=== PATIENT | female | born 1970 | race Caucasian/White ===

== ENCOUNTER 2022-01-21 15:06 | Outpatient (CLI) | payer BC, SELFPAY ==
--- NOTE | 2022-01-21 15:20 | CRLHL7_ITS ---
For Patients: As a result of the Century Cures Act, medical imaging exams and procedure reports are released immediately into your electronic medical record. You may view this report before your referring provider. If you have questions, please contact your health care provider. BILATERAL SCREENING MAMMOGRAM WITH COMPUTER-AIDED DETECTION AND TOMOSYNTHESIS TECHNIQUE: CC and MLO views were obtained. These mammographic images have been obtained using full-field digital technique. These mammographic images were interpreted with the benefit of computer-aided detection. Breast Tomosynthesis was used in this interpretation. COMPARISON FILM: 11/25/2020, 11/14/2020, 11/12/2019. BREAST COMPOSITION: The breasts are heterogeneously dense, which may obscure small masses FINDINGS: There is a possible 1.3 cm asymmetry LEFT lateral breast 6 cm from the nipple. Negative findings RIGHT breast. IMPRESSION: Possible LEFT breast asymmetry. ASSESSMENT: BI-RADS Category 0: Incomplete: Need Additional Imaging Evaluation and/or Prior Mammograms for Comparison RECOMMENDATION: Recommend CC spot compression view and 90-degree lateral view. Additionally, ultrasound may be needed during the diagnostic evaluation. The [facility] will contact the patient for follow-up. A lay language report of this examination will be provided to the patient. Marlyn Hart M.D. Diagnostic/Breast Radiologist [email or web address] Transcribed: 9:25 a.m. DW/Dictated by: Marlyn Hart MD @ 01/22/2022 8:43:00 AM (Electronically Signed)
== END 2022-01-21 15:07 | disposition home or self-care (01) ==
PROVIDERS: PCP Physician Assistant Medical; Visit Provider Physician Assistant Medical
DX: Z12.31 Encounter for screening mammogram for malignant neoplasm of breast (principal); R92.2 Inconclusive mammogram; N63.20 Unspecified lump in the left breast, unspecified quadrant
CPT/HCPCS: 77063; 77067

== ENCOUNTER 2022-02-01 10:01 | Outpatient (CLI) | payer BC, SELFPAY ==
--- NOTE | 2022-02-01 09:45 | CRLHL7_ITS ---
For Patients: As a result of the Cures Act, medical imaging exams and procedure reports are released immediately into your electronic medical record. You may view this report before your referring provider. If you have questions, please contact your health care provider. LEFT BREAST DIAGNOSTIC MAMMOGRAM WITH COMPUTER-AIDED DETECTION AND TOMOSYNTHESIS CLINICAL HISTORY: LEFT breast mass/asymmetry. COMPARISON: 01/21/2022. TECHNIQUE: Digital LEFT mammogram in 2 projections. Real-time ultrasound imaging of LEFT breast with imaging documentation. BREAST COMPOSITION: The breasts are heterogeneously dense, which may obscure small masses. FINDINGS: 3D spot-compression CC and 3D lateral LEFT breast mammogram submitted. Dense fibroglandular tissue is present within the LEFT breast at posterior depth 3 o`clock. An incidental cyst is present 3 o`clock 6 cm from the nipple measuring 3 x 4 x 4 millimeters. No abnormal vascularity. At 1 o`clock 3 cm from the nipple there is a circumscribed anechoic simple cyst at posterior depth measuring 2.3 x 0.7 x 1.6 cm. IMPRESSION: Dense fibroglandular tissue and benign fibrocystic changes. No evidence of malignancy. RECOMMENDATIONS: Annual BILATERAL screening mammography. BI-RADS Category 2: Benign Results and recommendations discussed with the patient. Dictated by Danilo Millard MD @ 02/01/2022 11:04:15 AM/edilia be/Dictated by: Danilo Millard MD @ 02/01/2022 11:04:00 AM (Electronically Signed)
--- NOTE | 2022-02-01 10:15 | CRLHL7_ITS ---
For Patients: As a result of the Century Cures Act, medical imaging exams and procedure reports are released immediately into your electronic medical record. You may view this report before your referring provider. If you have questions, please contact your health care provider. Please refer to mammogram report done same day for details of ultrasound. be/Dictated by: Danilo Millard MD @ 02/01/2022 11:04:00 AM (Electronically Signed)
== END 2022-02-01 10:02 | disposition home or self-care (01) ==
LOC: MAMMO 10:02
PROVIDERS: PCP Physician Assistant Medical; Visit Provider Physician Assistant Medical
DX: N63.20 Unspecified lump in the left breast, unspecified quadrant (principal); R92.8 Other abnormal and inconclusive findings on diagnostic imaging of breast
CPT/HCPCS: 76642; 77065; G0279

== ENCOUNTER 2023-01-19 08:55 | Outpatient (CLI) | payer BC, SELFPAY | END 2023-01-19 08:56 | disposition home or self-care (01) | PROVIDERS: PCP Physician Assistant Medical; Visit Provider Physician Assistant Medical | DX: Z00.00 Encounter for general adult medical examination without abnormal findings (principal); E78.5 Hyperlipidemia, unspecified; Z13.0 Encounter for screening for diseases of the blood and blood-forming organs and certain disorders involving the immune mechanism | CPT/HCPCS: 80053; 80061 ==

== ENCOUNTER 2023-03-25 14:26 | Outpatient (CLI) | payer BC, SELFPAY ==
--- NOTE | 2023-03-25 14:40 | CRLHL7_ITS ---
For Patients: As a result of the Cures Act, medical imaging exams and procedure reports are released immediately into your electronic medical record. You may view this report before your referring provider. If you have questions, please contact your health care provider. BILATERAL SCREENING MAMMOGRAM WITH COMPUTER-AIDED DETECTION AND TOMOSYNTHESIS TECHNIQUE: CC and MLO views were obtained. These mammographic images have been obtained using full-field digital technique. These mammographic images were interpreted with the benefit of computer-aided detection. Breast Tomosynthesis was used in this interpretation. COMPARISON FILM: 01/21/22, 11/14/20, 11/12/19. FINDINGS: The breasts are heterogeneously dense, which may obscure small masses . IMPRESSION: There is no radiographic evidence for malignancy. ASSESSMENT: BI-RADS Category 1: Negative RECOMMENDATION: Routine screening mammogram in 1 year. A lay language report of this examination will be provided to the patient. Danilo Millard M.D. Diagnostic Radiologist [facility] LORRIE/elisa / be/Dictated by: Danilo Millard MD @ 03/28/2023 9:59:00 AM (Electronically Signed)
== END 2023-03-25 14:27 | disposition home or self-care (01) ==
LOC: MAMMO 14:26
PROVIDERS: PCP Physician Assistant Medical; Visit Provider Physician Assistant Medical
DX: Z12.31 Encounter for screening mammogram for malignant neoplasm of breast (principal); R92.2 Inconclusive mammogram
CPT/HCPCS: 77063; 77067

== ENCOUNTER 2024-02-27 08:04 | Outpatient (CLI) | payer BC, SELFPAY | END 2024-02-27 08:05 | disposition home or self-care (01) | PROVIDERS: PCP Physician Assistant Medical; Visit Provider Physician Assistant Medical | DX: Z00.00 Encounter for general adult medical examination without abnormal findings (principal); E78.5 Hyperlipidemia, unspecified; N92.6 Irregular menstruation, unspecified; Z13.0 Encounter for screening for diseases of the blood and blood-forming organs and certain disorders involving the immune mechanism; Z13.1 Encounter for screening for diabetes mellitus | CPT/HCPCS: 80053; 80061; 83001 ==

== ENCOUNTER 2024-04-03 12:26 | Outpatient (CLI) | payer BC, SELFPAY ==
--- NOTE | 2024-04-03 13:00 | CRLHL7_ITS ---
For Patients: As a result of the Century Cures Act, medical imaging exams and procedure reports are released immediately into your electronic medical record. You may view this report before your referring provider. If you have questions, please contact your health care provider. BILATERAL SCREENING MAMMOGRAM WITH COMPUTER-AIDED DETECTION AND TOMOSYNTHESIS TECHNIQUE: CC and MLO views were obtained. These mammographic images have been obtained using full-field digital technique. These mammographic images were interpreted with the benefit of computer-aided detection. Breast Tomosynthesis was used in this interpretation. COMPARISON FILM: 03/25/23, 01/21/22, 11/14/20. FINDINGS: The breasts are heterogeneously dense, which may obscure small masses IMPRESSION: There is no radiographic evidence for malignancy. ASSESSMENT: BI-RADS Category 1: Negative RECOMMENDATION: Routine screening mammogram in 1 year. A lay language report of this examination will be provided to the patient. Danilo Millard M.D. Diagnostic Radiologist [email or web address] [email or web address]/[email or web address] Transcribed: 4:38 p.mKeenan deleon/Dictated by: Danilo Millard MD @ 04/04/2024 10:47:00 AM (Electronically Signed)
== END 2024-04-03 12:27 | disposition home or self-care (01) ==
PROVIDERS: PCP Physician Assistant Medical; Visit Provider Physician Assistant Medical
DX: Z12.31 Encounter for screening mammogram for malignant neoplasm of breast (principal); R92.333 Mammographic heterogeneous density, bilateral breasts
CPT/HCPCS: 77063; 77067

== ENCOUNTER 2025-03-13 13:27 | Outpatient (CLI) | payer BC, SELFPAY ==
[2025-03-13 23:05] LABS: Chlamydia DNA Amplified* NOT DETECTED (No Detected); GC DNA Amplified* NOT DETECTED (No Detected)
[2025-03-16 17:51] LABS: HPV Source Cervix
[2025-03-21 10:34] LABS: Pap Test Screened Manually Done
== END 2025-03-13 13:28 | disposition home or self-care (01) ==
PROVIDERS: PCP Physician Assistant Medical; Visit Provider Physician Assistant Medical
DX: Z00.00 Encounter for general adult medical examination without abnormal findings (principal)
CPT/HCPCS: 80053; 80061; 86703; 87491; 87591; 87624; 87625; 88141; 88142; 88175

== ENCOUNTER 2025-03-22 07:08 | Outpatient (CLI) | payer BC, SELFPAY ==
--- NOTE | 2025-03-22 07:15 | CRLHL7_ITS ---
For Patients: As a result of the Century Cures Act, medical imaging exams and procedure reports are released immediately into your electronic medical record. You may view this report before your referring provider. If you have questions, please contact your health care provider. INDICATION: Dysmenorrhea COMPARISON: None. TECHNIQUE: 2D schwartz-scale and color Doppler images were acquired of the pelvis using a transabdominal and transvaginal approach. Transvaginal imaging performed to better visualize the endometrial stripe and ovaries. FINDINGS: Sonographic images demonstrate a normal size and smooth outer contour of the uterus. Uterus measures 9.3 cm in length by 4.7 cm in AP diameter by 5.5 cm in transverse dimension. The myometrium has a normal uniform echotexture. The endometrial lining measures 14.7 mm in composite thickness. Hyperechoic focus associated with the endometrium measuring 10 x 8 x 8 millimeters. The right ovary measures 2.1 x 0.9 x 1.8 cm in size and the left ovary measures 4.3 x 2.1 x 2.6 cm. The ovaries demonstrate normal arterial and venous blood flow on color Doppler analysis. There are no suspicious fluid collections within the cul-de-sac. Small left ovarian cysts are present measuring up to 1.8 cm. IMPRESSION: Thickened endometrium measuring 14.7 millimeters with possible 10 millimeter polyp. Dictated by Danilo Millard MD @ 03/22/2025 2:54:12 PM (Electronically Signed)
== END 2025-03-22 07:09 | disposition home or self-care (01) ==
LOC: US 07:08
PROVIDERS: PCP Physician Assistant Medical; Visit Provider Physician Assistant Medical
DX: N94.6 Dysmenorrhea, unspecified (principal); R93.89 Abnormal findings on diagnostic imaging of other specified body structures
CPT/HCPCS: 76830; 76856